=== PATIENT | female | born 1945 | race Caucasian/White ===

== ENCOUNTER 2022-07-29 00:21 | Day surgery (SDC) | payer MEDICARE, SELFPAY ==
[2022-07-23 11:38] VITALS: BMI 25.4
--- NOTE | 2022-07-28 14:56 | WPDANESEPPF ---
Anes - Initial Pre Proc Eval Procedure: Operation Date: 07/29/22 10:00 Proposed Procedures p Bronchoscopy with Fluoroscopy - Bonifacio Delatorre MD Date/Time: 07/28/22 14:56 Surgeon: Bonifacio Delatorre MD Pre Op Diagnosis: right lung mass Patient Data Age: 77 Gender: F Height: 1.6 m Weight: 65 kg Allergies Allergy/AdvReac Type Severity Reaction Status Date / Time hydroxychloroquine Allergy Severe Rash Verified 07/23/22 11:41 sulfamethoxazole Allergy Severe Rash Verified 07/23/22 11:42 [From Bactrim] trimethoprim [From Bactrim] Allergy Severe Rash Verified 07/23/22 11:42 Home Medications Medication Instructions Recorded Confirmed Type diclofenac sodium 75 mg 75 mg PO BID 05/04/21 07/23/22 History tablet,delayed release multivit with 1 tablet PO DAILY 05/04/21 07/23/22 History hutzwxbw-rvbq-WW-lutein 8 mg iron-400 mcg-300 mcg tablet (Centrum Silver Women) amlodipine 5 mg tablet 5 mg PO QPM 07/21/22 07/23/22 History aspirin 81 mg tablet,delayed 81 mg PO DAILY 07/21/22 07/23/22 History release atorvastatin 40 mg tablet 40 mg PO DAILY 07/21/22 07/23/22 History losartan 100 mg tablet 100 mg PO DAILY 07/21/22 07/23/22 History albuterol sulfate 90 mcg/actuation 2 inh inhalation Q4-6H PRN 07/23/22 07/23/22 History aerosol inhaler Shortness Of Breath Or Wheezing cholecalciferol (vitamin D3) 25 25 mcg PO DAILY 07/23/22 07/23/22 History mcg (1,000 unit) tablet (Vitamin D3) clobetasol 0.05 % topical ointment 1 applic topical BID PRN LICHENS 07/23/22 07/23/22 History mucus clearing device 07/23/22 07/23/22 History umeclidinium 62.5 mcg/actuation 1 inh inhalation DAILY #30 ea 07/27/22 Rx blister powder for inhalation (Incruse Ellipta) Patient hx anesthesia problems: none Family hx anesthesia problems: none Results Review: All pre-operative results and documents have been reviewed as part of the pre-operative evaluation. [facility] Past Medical History Medical History (Updated 07/28/22 @ 14:57 by Carlitos Richardson MD) Arthritis COPD (chronic obstructive pulmonary disease) Hypertension Lichen sclerosus 2016 Lung mass Surgical History Surgical History History of appendectomy 1951 History of breast biopsy 1991 History of dilation and curettage 1976 History of left salpingo-oophorectomy History of right oophorectomy only part of ovary was removed Family History Family History Father Alcoholism Hypertension Heart problem Mother Hypertension Depression Anxiety Heart problem Sibling Alcoholism Diabetes mellitus Hypertension Grandparent Alcoholism Diabetes mellitus Social History Social History (Updated 07/21/22 @ 13:15 by Char Jackson [facility]) Smoking packs per day: 1 Smoking cigarettes per day: 20.0 Years smoked: 60 Smoking pack-years: 60.00 Smoking status: Former smoker Tobacco type: cigarettes Smoking end date: 06/12/22 Alcohol intake: former Substance use: never Substance use type: does not use Living arrangements: with roommate(s) Spiritual care concerns: No Anes - Eval Final PreProcedure Day of Procedure 07/28/22 14:56 Patient weight: normal Heart: regular rate and rhythm Lungs: clear to auscultation and normal air movement Airway: Mallampati scale class II Neurological: alert and oriented Last oral intake: >/= 8 hours ASA classification: III Emergent: no Anesthetic plan: proceed Anesthesia type and monitoring: general LMA and ETT Results Review: All pre-operative results and documents have been reviewed as part of the pre-operative evaluation. Informed Consent: The patient's anesthetic plan and its attendant risks and benefits were discussed with the patient/family/POA. Questions were solicited and answers provided to the satisfaction of the patient/family/POA.
[2022-07-29] VITALS (12 sets, daily range): BP systolic 110–168; BP diastolic 53–97; PULSE 67–94; RESP 14–24; TEMP 36.2; O2SAT 96–100; BMI 25.2
--- NOTE | ~2022-07-29 | XR_ITS ---
EXAMINATION: XR fl bronchoscopy w imaging DATE: 07/29/2022 10:55 INDICATION: Right hilar and mediastinal lymphadenopathy. TECHNIQUE: A single fluoroscopic view of the chest was obtained. I was not present. Fluoroscopy expos ure time was 69 seconds. COMPARISON: Chest single view 07/29/2022 FINDINGS: The bronchoscope overlies the right hilum. IMPRESSION: 1. Right-sided bronchoscopy. Reviewed, dictated and finalized at location A. ER [employer]
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
[2022-07-29] MEDS: LACTATED RINGERS 1,000 ML 150 ML IV CONT (08:52)
--- NOTE | 2022-07-29 08:53 | PM.IMHP ---
H&P: HPI History of Present Illness Date/Time: 07/29/22 08:53 Chief Complaint: Patient presents for outpatient bronchoscopy Narrative: patient presents for outpatient bronchoscopy. Patient was found to have a PET positive subcarinal and right hilar lesion with a right middle lobe collapse. I saw the patient in the clinic on 07/21/2022 and we discussed outpatient bronchoscopy scheduled for today. See below. Today the patient tells me she has no change in her symptoms. She denies fever, chills, rigors, phlegm production or hemoptysis. Risks and benefits of procedure explained and patient agrees to proceed Pulmonary clinic visit 07/21/2022:? This is a new pulmonary clinic encounter for mediastinal lymphadenopathy. 77-year-old with a history of tobacco use, mild COPD arthritis, hypertension, hyponatremia, rhinitis with postnasal drip, hyperlipidemia, who was referred by Dr. Montes for PET positive right hilar and subcarinal mass. Patient was seen by Dr. Montes on 07/05/2022. ?States she was seen by Dr. Pimentel (pulmonary), did PFTs last week.? Cough when laying on right side.? Complains of sinus infection and was given amoxicillin last week.? Is almost finished with antibiotics.? Taking [id number]-[id number] Zyrtec.? Room air saturations 97%.? Respiratory medicines include albuterol sulfate inhaler PRN. ?The assessment and plan states that the patient has a lung mass and is scheduled to get a PET scan this week.? 07/08/2022 patient had a PET CT scan with hypermetabolic lymphadenopathy in the right hilum and subcarinal location.? Right middle lobe collapse, no hyper metabolic pulmonary nodules or masses. ?I have no images to review. ? Today she tells me that She has been told she has COPD few months ago.? The patient states that over the last years she has had worsening dyspnea on exertion.? If she walks slowly she has no limitations otherwise she said she can walk 1-2 blocks.? Her M MRC grade is 1.? She denies wheezing, cough, phlegm production and has never had any hemoptysis.? Patient was in the emergency room in June of 2022 for shortness of breath and given bronchodilators and discharged on albuterol p.r.n..? She has not been admitted to the hospital for COPD exacerbation in the last year.? Patient smoked tobacco from age 17-5 weeks ago at 1 pack per day for total of 60 pack years.? Patient was exposed to secondhand smoke through her father and through her roommate up until 2006.? 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 Patient denies any prior cancer, chemotherapy or radiation therapy. Patient has lost 7 lb in last 2 and half months. ? Patient's CAT score today is 15. DATA: 07/08/2022 PET/CT: I have a report from a PET CT from [facility]. Comparison to chest CT 06/11/2022. Chest:? Hypermetabolic lymphadenopathy is present in the right hilum and subcarinal station, and the right hilum this is 3.7 x 2.1 cm maximal SUV 14.7.? In the subcarinal station this is 3.0 x 1.6 cm, maximal SUV 13.7.? There are few smaller right paratracheal and posterior paratracheal lymph nodes which measure up to 1.2 cm with a maximal SUV of 3.6.? There is peripheral minimally FDG avid wedge-shaped opacity in the right middle lobe which likely post obstructive atelectasis, the right middle lobe appears collapse.? No hypermetabolic pulmonary nodules or masses.? The heart size is mildly enlarged.? There is no pleural or pericardial effusion.? No hypermetabolic supraclavicular, axillary or hilar lymphadenopathy. Impression: 1. Hypermetabolic right hilar and mediastinal lymphadenopathy most pronounced in the subcarinal station most characteristic of neoplasm, the etiology is nonspecific.? Correlation with bronchoscopy and tissue sampling is recommended. 2. Peripheral wedge-shaped opacity in the right middle lobe with minimal activity characteristic of right middle
[2022-07-29 08:59] LABS: INR 1.1; Prothrombin Time 13.3 Seconds (11.1-14.7)
[2022-07-29 08:59] LABS: Hematocrit 38.8 % (37.0-47.0); Hemoglobin 12.5 g/dL (12.0-15.0); Mean Corpuscular HGB Conc 32.2 g/dl (32-36); Mean Corpuscular Hemoglobin 29.4 pg (26-34); Mean Corpuscular Volume 91.3 fl (80-100); Mean Platelet Volume 9.7 fl (7.4-10.4); Platelet Count Result 254 k/mm3 (150-375); Red Blood Count 4.25 M/mm3 (4.2-5.4); Red Cell Distribution Width 13.2 % (11.5-14.5)
[2022-07-29 09:00] LABS: Partial Thromboplastin Time 30.8 SECONDS (22.3-36.8)
[2022-07-29 09:02] LABS: Anion Gap 11 mmol/L (8-16); Blood Urea Nitrogen 21 mg/dL (7-17); Calcium 8.9 mg/dL (8.4-10.2); Carbon Dioxide 24 mmol/L (22-30); Chloride 106 mmol/L (98-107); Estimated CRCL calculation 29 ml/min; Estimated Glomerular Filt Rate 44; Glucose 102 mg/dL (65-110); Potassium 4.2 mmol/L (3.4-5.0); Sodium 141 mmol/L (137-145)
[2022-07-29] MEDS: LIDOCAINE HCL 2% LOCAL INJ 20 ML VIAL 4 ML INFILTRATE (11:05)
[2022-07-29] MEDS: SODIUM CHLORIDE 0.9% IV 500 ML BAG IRRIGATION (11:06)
--- NOTE | 2022-07-29 11:53 | SUR.PHASEII ---
Post op chest X ray results called to Dr. Delatorre. Dr. Delatorre has reviewed and states ok to discharge patient.
--- NOTE | 2022-07-29 11:59 | SUR.PHASEII ---
Pt complains of right upper lobe pain on inspiration. Dr. Delatorre notified and at bedside to assess patient.
--- NOTE | 2022-07-29 12:44 | SUR.PHASEII ---
Radiology here for chest x-ray.
--- NOTE | 2022-07-29 12:53 | SUR.PHASEII ---
Pt. states that all her previous pain on inspiration has gone away. Vitals stable. Very pleasant and cooperative. No questions at this time.
--- NOTE | 2022-07-29 13:02 | SUR.PHASEII ---
Dr. Delatorre at bedside talking with pt. at present time.
--- NOTE | 2022-07-29 13:35 | SUR.PHASEII ---
Recent chest x ray results called to Dr Delatorre states ok to discharge pt.
== END 2022-07-29 13:49 | disposition home or self-care (01) ==
PROVIDERS: PCP Internal Medicine; Visit Provider Internal Medicine Pulmonary Disease
PROC: BB1DZZZ Fluoroscopy of Upper Airways (ICD-10-PCS; CPT 31624; principal; 2022-07-29 10:00)
DX: R91.8 Other nonspecific abnormal finding of lung field (principal); R07.89 Other chest pain; G89.18 Other acute postprocedural pain; J44.9 Chronic obstructive pulmonary disease, unspecified; I10 Essential (primary) hypertension; E78.5 Hyperlipidemia, unspecified; Z87.891 Personal history of nicotine dependence; Z79.51 Long term (current) use of inhaled steroids; Z79.82 Long term (current) use of aspirin
CPT/HCPCS: 31629; 31624; 36415; 71045; 80048; 85027; 85610; 85730; 87015; 87070; 87102; 87116; 87205; 87206; 88108; 88160; 88305; 88312; 99199; J0330; J2405; J2704; J7040; J7120

== ENCOUNTER 2022-08-31 09:46 | Outpatient (CLI) | payer MEDICARE, SELFPAY ==
--- NOTE | ~2022-08-31 | CT_ITS ---
CT Scan of the Chest without Contrast: Clinical Indication: Lung mass Technique: Contiguous sections were acquired throughout the chest without intravenous contrast. Dose reduction technique was used on this scan by utilizing automated exposure control and iterative recon struction technique. The dose-length product (DLP) was 157.35 mGy-cm. COMPARISON: 06/11/2022 Findings: There is a probable small right hilar mass, which is probably significantly decreased in size from pr ior exam, though somewhat poorly delineated without contrast. There is partial atelectatic change of the right middle lobe. Lungs are otherwise clear. Previously noted enlarged subcarinal lymph node is markedly decreased in size, now measuring 1.4 x 0. 6 cm. No other mediastinal lymphadenopathy evident. No pericardial effusion. No pleural effusions. Images through the upper abdomen reveal no abnormalities. Impression: Significant interval decrease in size of right hilar mass and subcarinal lymphadenopathy as compared to prior exam. This presumably represents interval response to therapy. Partial right middle lobe atelectatic change. Reviewed, dictated and finalized at [facility]. P SORTER Impression: Significant interval decrease in size of right hilar mass and subcarinal lympha denopathy as compared to prior exam. This presumably represents interval respon se to therapy. Partial right middle lobe atelectatic change.
== END 2022-08-31 09:47 | disposition home or self-care (01) ==
PROVIDERS: PCP Internal Medicine; Visit Provider Internal Medicine Pulmonary Disease
DX: R91.8 Other nonspecific abnormal finding of lung field (principal); R59.0 Localized enlarged lymph nodes; J98.11 Atelectasis
CPT/HCPCS: 71250

== ENCOUNTER 2022-11-29 09:46 | Outpatient (CLI) | payer MEDICARE, SELFPAY ==
--- NOTE | ~2022-11-29 | CT_ITS ---
Clinical Indication: Lung mass, lymphadenopathy CT Scan of the Chest with Contrast: Technique: Contiguous sections were acquired throughout the chest after intravenous administration of 75 cc of Omnipaque 350. Dose reduction technique was used on this scan by utilizing automated exposu re control and iterative reconstruction technique. The dose-length product (DLP) was 209.30 mGy-cm. COMPARISON: 08/31/2022 Findings: There is no evidence of any significant mediastinal, hilar or axillary lymphadenopathy. There is no f illing defect in the pulmonary arterial tree to suggest pulmonary embolus. There is no evidence of ao rtic dissection or aneurysm. There are atherosclerotic calcifications of the aorta. There is no evidence of pleural or pericardial effusion. There is right middle lobe and lingular scarring. No suspicious pulmonary nodule identified. Images through the upper abdomen reveal no abnormalities. Impression: Right middle lobe and lingular scarring, otherwise clear lungs. Small mediastinal lymph nodes are not enlarged by size criteria. Reviewed, dictated and finalized at [facility]. Impression: Right middle lobe and lingular scarring, otherwise clear lungs. Small mediastinal lymph nodes are not enlarged by size criteria.
[2022-11-29 10:22] LABS: Estimated Glomerular Filt Rate 37
== END 2022-11-29 09:47 | disposition home or self-care (01) ==
PROVIDERS: PCP Internal Medicine; Visit Provider Internal Medicine Pulmonary Disease
DX: R91.8 Other nonspecific abnormal finding of lung field (principal)
CPT/HCPCS: 71260; Q9967

== ENCOUNTER 2023-11-30 13:57 | Outpatient (CLI) | payer MEDICARE, SELFPAY ==
--- NOTE | ~2023-11-30 | CT_ITS ---
CT Scan of the Chest without Contrast: Clinical Indication: Nonspecific abnormal finding of lung field Technique: Contiguous sections were acquired throughout the chest without intravenous contrast. Dose reduction technique was used on this scan by utilizing automated exposure control and iterative recon struction technique. The dose-length product (DLP) was 156.48 mGy-cm. COMPARISON: 11/29/2022 Findings: There is no evidence of any significant mediastinal, hilar or axillary lymphadenopathy. There are ath erosclerotic calcifications of the aorta and coronary arteries. There is no evidence of pleural or pericardial effusion. 4 mm subpleural right middle lobe pulmonary nodule present, not clearly seen on prior exam (axial lauren ge 69). Images through the upper abdomen reveal no abnormalities. Impression: 4 mm right middle lobe pulmonary nodule. According to Fleischner Society criteria, for a low-risk pat ient, no further follow-up required. For a high-risk patient, consider 12 follow-up CT. Reviewed, dictated and finalized at [facility]. Impression: 4 mm right middle lobe pulmonary nodule. According to Fleischner Society criter ia, for a low-risk patient, no further follow-up required. For a high-risk yosi ent, consider 12 follow-up CT.
== END 2023-11-30 13:58 | disposition home or self-care (01) ==
LOC: ANHIMG 13:57
PROVIDERS: PCP Internal Medicine; Visit Provider Internal Medicine Pulmonary Disease
DX: R91.1 Solitary pulmonary nodule (principal); R91.8 Other nonspecific abnormal finding of lung field
CPT/HCPCS: 71250

== ENCOUNTER 2024-11-29 09:28 | Outpatient (CLI) | payer MEDICARE, SELFPAY ==
--- NOTE | ~2024-11-29 | CT_ITS ---
CT Scan of the Chest without Contrast: Clinical Indication: Lung cancer screening, nicotine dependence Technique: Contiguous sections were acquired throughout the chest without intravenous contrast. Dose reduction technique was used on this scan by utilizing automated exposure control and iterative recon struction technique. The dose-length product (DLP) was 95.98 mGy-cm. COMPARISON: 11/30/2023 Findings: There is no evidence of any significant mediastinal, hilar or axillary lymphadenopathy. The mediastin al soft tissues appear normal. There is no evidence of pleural or pericardial effusion. Right middle lobe pulmonary nodule is mildly decreased. A few additional tiny scattered pulmonary nod ules are unchanged. Images through the upper abdomen reveal no abnormalities. Stable mild compression deformities of T8 a nd T9. Impression: Lung RADS 2: Benign appearance. 12 month follow-up screening CT advised. Reviewed, dictated and finalized at location . Impression: Lung RADS 2: Benign appearance. 12 month follow-up screening CT advised.
--- OUTSIDE RECORDS SUMMARY | 2024-11-29 09:54 | XMS_ITS | Data Portability ---
Author Organization [facility] Address [address] [place] [address] Care Team Providers Care Fisher Clam Name Role Phone PIERRE HERNANDEZ Propeller Mechanic CHELE MURCIA Primary Care Provider Assessment No assessment recorded. Plan of Treatment Reminders Order Date Submit Date Provider Last Modified By Organization Details Last Modified Time Details Appointments None recorded . Lab patholog y study 2015 016 DBA_[email or web address] [id number] [facility], [address], [place], [address], 6 04:33:04 urinalys is, dipstick 2015 016 DBA_PATCH_20 [id number] In-Office Order, Internal Use Only DO Not Attach Compendium DO Not Attach Compendium, Do Not Delete/merge, [id number] 6 04:32:05 bacteria l vaginosi s + vaginiti s panel, vaginal 2015 016 DBA_PATCH_20 [id number] [facility], [address], [place], [address], 6 04:32:08 herpes simplex, culture, unspecif ied specimen 2015 016 DBA_PATCH_20 [id number] [facility], [address], [place], [address], 6 04:32:08 pap, IG + HPV, cervical - did above PAP from vulva for diagnosi s of vulvar pruritis at age 71 2015 016 DBA_PATCH_20 [id number] [facility], [address] [address], [place], [address], 6 04:31:45 Referral None recorded . Procedures None recorded . Surgeries None recorded . Imaging None recorded . Medication Orders Calcium with Vitamin D 600 mg-10 mcg (400 unit) tablet 2020 021 INTERFACE Not available 07:17:57 multivit sharma tablet 2020 INTERFACE Not available 07:17:57 clobetas ol 0.05 % topical ointment 2020 INTERFACE Not available 23:44:15 Percocet 5 mg-325 mg tablet 2015 016 DBA_PATCH_20 [id number] Not available 6 04:33:07 fluconaz ole 150 mg tablet 2015 016 [email or web address] Not available 16:04:59 Patient TargetsNo targets recorded. Patient Instructions Encounter Date Encounter Id Patient Instructions Last Modified By Organization Details Last Modified Time 07/30/2016 [id number] candidiasis: car e instructions [email or web address] Not available 07/30/2016 16:16:44 08/19/2016 [id number] vulvar biopsy education [email or web address] [id number] Not available 08/28/2016 04:33:12 09/02/2016 [id number] lichen sclerosus : care instructions svuyyuru Not available 09/02/2016 11:47:35 lichen sclerosis education svuyyuru Not available 09/02/2016 11:47:35 Reason for Referral None Reported. Results Created Date Observation Date Name Description Value Unit Range Abnormal Flag Note LastModifiedBy Organization Detail LastModifiedTime 07/30/20 16 07/30/2016 urina lysis , dipst ick Leukocytes Negati ve Not Available In-Office Order Internal Use Only DO Not Attach Compendium DO Not Attach Compendium, Do Not Delete/merge, [id number] 07/30/2016 15:11:15 07/30/20 16 07/30/2016 urina lysis , dipst ick Nitrite negati ve Not Available In-Office Order Internal Use Only DO Not Attach Compendium DO Not Attach Compendium, Do Not Delete/merge, [id number] 07/30/2016 15:11:15 07/30/20 16 07/30/2016 urina lysis , dipst ick Urobilinogen .2 Not Available In-Of fice Order Internal Use Only DO Not Attach Compendium DO Not Attach Compendium, Do Not Delete/merge, [id number] 07/30/2016 15:11:15 07/30/20 16 07/30/2016 urina lysis , dipst ick Protein Negati ve Not Available In-Office Order Internal Use Only DO Not Attach Compendium DO Not Attach Compendium, Do Not Delete/merge, [id number] 07/30/2016 15:11:15 07/30/20 16 07/30/2016 urina lysis , dipst ick pH 7.0 Not Available In-Office Order Internal Use Only DO Not Attach Compendium DO Not Attach Compendium, Do Not Delete/merge, [id number] 07/30/2016 15:11:15 07/30/20 16 07/30/2016 urina lysis , dipst ick Blood Negati ve Not Available In-Office Order Internal Use Only DO Not Attach Compendium DO Not Attach Compendium, Do Not Delete/merge, [id number] 07/30/2016 15:11:15 07/30/20 16 07/30/2016 urina lysis , dipst ick Specific [place] 1.015 Not Available In-Off ice Order Internal Use Only DO Not Attach Compendium DO Not Attach Compendium, Do Not Delete/merge, [id number] 07/30/2016 15:11:15 07/30/20 16 07/30/2016 urina lysis , dipst ick Ketone Negati ve Not Available In-Office Order Internal Use Only DO Not Attach Compendium DO Not Attach Compendium, Do Not Delete/merge, [id number] 07/30/2016 15:11:15 07/30/20 16 07/30/2016 urina lysis , dipst ick Bilirubin Negati ve Not Available In-Office Order Internal Use Only DO Not Attach Compendium DO Not Attach Compendium, Do Not Delete/merge, [id number] 07/30/2016 15:11:15 07/30/20 16 07/30/2016 urina lysis , dipst ick Glucose Negati ve Not Available In-Office Order Internal Use Only DO Not Attach Compendium DO Not Attach Compendium, Do Not Delete/merge, [id number] 07/30/2016 15:11:15 07/30/20 16 08/01/2016 bacte rial vagin osis + vagin itis panel , vagin al trich vag by SHIREEN NEGATI VE negati ve Not Available [facility] ([facility]) [address] [place], [address], 08/03/2016 14:11:35 07/30/20 16 08/01/2016 bacte rial vagin osis + vagin itis panel , vagin al chlamydia trachomatis, SHIREEN NEGATI VE negati ve Not Available [facility] ([facility]) [address] [place], [address], 08/03/2016 14:11:35 07/30/20 16 08/01/2016 bacte rial vagin osis + vagin itis panel , vagin al neisseria gonorrhoeae, SHIREEN NEGATI VE negati ve Not Available [facility] ([facility]) [address] [place], [address], 08/03/2016 14:11:35 07/30/20 16 08/03/2016 bacte rial vagin osis + vagin itis panel , vagin al atopobium vaginae LOW - 0 score Not Available [facility] ([facility]) [address] [place], [address], 08/03/2016 14:11:35 07/30/20 16 08/03/2016 bacte rial vagin osis + vagin itis panel , vagin al bvab 2 LOW - 0 score Not Available [facility] ([facility]) [address] [place], [address], 08/03/2016 14:11:35 07/30/20 16 08/03/2016 bacte rial vagin osis + vagin itis panel , vagin al megasphaera 1 LOW - 0 score CALCU LATE TOTAL SCORE BY SANDY Murphy THE 3 INDIV IDUAL BACTE RIAL VAGIN OSIS (BV) MARKE R SCORE S TOGET HER. TOTAL SCORE IS INTER PRETE D FOLLO WS: TOTAL SCORE 0-1: INDIC ATES THE ABSEN CE OF BV. TOTAL SCORE 2: INDET ERMIN ATE FOR BV. ADDIT IONAL CLINI MERRY DATA SHOUL D BE EVALU ATED TO ESTAB VALENTE A DIAGN OSIS. TOTAL SCORE 3-6: INDIC ATES THE PRESE NCE OF BV. THIS TEST WAS DEVEL OPED AND ITS PERFO RMANC E RUSSELL CTERI STICS DETER MINED BY [employer]. IT HAS NOT BEEN CLEAR ED OR APPRO DEVANG BY THE FOOD AND DRUG ADMIN ISTRA TION. THE FDA HAS DETER MINED THAT SUCH CLEAR ANCE OR APPRO TODD IS NOT NECES JORGE. Not Available [facility] ([facility]) [address] [place], [address], 08/03/2016 14:11:35 07/30/20 16 08/03/2016 bacte rial vagin osis + vagin itis panel , vagin al alex albicans, SHIREEN NEGATI VE negati ve Not Available [facility] ([facility]) [address] [place], [address], 08/03/2016 14:11:35 07/30/20 16 08/03/2016 bacte rial vagin osis + vagin itis panel , vagin al alex glabrata, SHIREEN NEGATI VE negati ve THIS TEST WAS DEVEL OPED AND ITS PERFO RMANC E RUSSELL CTERI STICS DETER MINED BY [employer]. IT HAS NOT BEEN CLEAR ED OR APPRO DEVANG BY THE FOOD AND DRUG ADMIN ISTRA TION. THE FDA HAS DETER MINED THAT SUCH CLEAR ANCE OR APPRO TODD IS NOT NECES JORGE. Not Available [facility] ([facility]) [address] [place], [address], 08/03/2016 14:11:35 07/30/20 16 08/01/2016 herpe s simpl ex, cultu re, unspe cifie d speci men hsv culture/type COMMEN T NEGAT CEDRICK NO HERPE S SIMPL EX VIRUS ISOLA BALA. Not Available [facility] ([facility]) [address] [facility], [place], [address], 08/03/2016 14:11:36 07/30/20 16 08/03/2016 pap, IG + HPV, cervi merry HPV aptima NEGATI VE negati ve THIS TEST DETEC TS FOURT EEN HIGH- RISK HPV TYPES (16/1 8/31/ 33/35 /39/4 5/ 51/52 /56/5 8/59/ 66/68 ) WITHO UT DIFFE RENTI ATION . Not Available [facility] ([facility]) [address] [facility], [place], [address], 08/04/2016 14:12:36 07/30/20 16 08/04/2016 pap, IG + HPV, cervi merry diagnosis: COMMEN T UNSAT ISFAC TORY FOR EVALU ATION . Not Available [facility] ([facility]) [address] [facility], [place], [address], 08/04/2016 14:12:36 07/30/20 16 08/04/2016 pap, IG + HPV, cervi merry recommendati on: COMMEN T SUGGE ST FOLLO W UP CLINI KARLA APPRO PRIAT E. Not Available [facility] ([facility]) [address] [facility], [place], [address], 08/04/2016 14:12:36 07/30/20 16 08/04/2016 pap, IG + HPV, cervi merry specimen adequacy: COMMEN T SPECI MEN PROCE SSED AND EXAMI KELLI BUT UNSAT ISFAC TORY FOR EVALU ATION OF EPITH ELIAL ABNOR MALIT Y BECAU SE OF INSUF FICIE NT CELLU LARIT Y. Not Available [facility] ([facility]) [address] [place], [address], 08/04/2016 14:12:36 07/30/20 16 08/04/2016 pap, IG + HPV, cervi merry clinician provided ICD10: MARCIE Vital L29.2 Not Available [facility] ([facility]) [address] [place], [address], 08/04/2016 14:12:36 07/30/20 16 08/04/2016 pap, IG + HPV, cervi merry performed by: MARCIE Fink, CYTOT ECHNO LOGIS T (ASCP ) Not Available [facility] ([facility]) [address] [place], [address], 08/04/2016 14:12:36 07/30/20 16 08/04/2016 pap, IG + HPV, cervi merry QC reviewed by: MARCIE Fink, GENO VISOR Y CYTOT ECHNO LOGIS T (ASCP ) Not Available [facility] ([facility]) [address] [place], [address], 08/04/2016 14:12:36 07/30/20 16 08/04/2016 pap, IG + HPV, cervi merry . . Not Available [facility] ([facility]) [address] [place], [address], 08/04/2016 14:12:36 07/30/20 16 08/04/2016 pap, IG + HPV, cervi merry note: MARCIE Vital THE PAP SMEAR IS A SCREE KRISTIN TEST DESIG KELLI TO AID IN THE DETEC TION OF CONOR LIGNA NT AND MALIG NANT CONDI TIONS OF THE UTERI NE CERVI X. IT IS NOT A DIAGN OSTIC PROCE DURE AND SHOUL D NOT BE USED THE SOLE MEANS OF DETEC TING CERVI MERRY CANCE R. BOTH FALSE -POSI TIVE AND FALSE -NEGA TIVE REPOR TS DO OCCUR . Not Available [facility] ([facility]) [address] [place], [address], 08/04/2016 14:12:36 07/30/20 16 08/04/2016 pap, IG + HPV, cervi merry test methodology: TNP THE THIN PREP( R) IMAGE R WAS UNABL E TO READ THIS SPECI MEN. THERE FORE A RAFIA GOINSIE W WAS PERFO RMED. Not Available [facility] ([facility]) [address] [facility], [place], [address], 08/04/2016 14:12:36 08/19/20 16 08/24/2016 patho logy study . COMMEN T MATER IAL SUBMI TTED: . PART A: PUNCH BIOPS Y INNER SIDE RIGHT LABIA MAJOR A PART B: PUNCH BIOPS Y INNER SIDE LEFT LABIA MAJOR A Not Available [facility] ([facility]) [address] [facility], [place], [address], 08/24/2016 10:36:24 08/19/20 16 08/24/2016 patho logy study . COMMEN T CLINI LOY PROVI DED ICD-1 0: L29.2 Not Available [facility] ([facility]) [address] [facility], [place], [address], 08/24/2016 10:36:24 08/19/20 16 08/24/2016 patho logy study . COMMEN T DIAGN OSIS: PART A: PUNCH BIOPS Y INNER SIDE RIGHT LABIA MAJOR A: LICHE N SCLER OSUS ET ATROP HICUS . NEGAT CEDRICK FOR DYSPL SOULEYMANE, VIRAL EFFEC T, AND MALIG DAI . PART B: PUNCH BIOPS Y INNER SIDE LEFT LABIA MAJOR A: BENIG N VULVA R TISSU E WITH HYPER KERAT OSIS AND CHRON IC INFLA MMATI ON. QUERY EARLY /EVOL VING LICHE N SCLER OSUS ET ATROP HICUS . NEGAT CEDRICK FOR DYSPL SOULEYMANE, VIRAL EFFEC T, AND MALIG DAI . 2015 Not Available [facility] ([facility]) [address] [place], [address], 08/24/2016 10:36:24 08/19/20 16 08/24/2016 patho logy study . COMMLAMAR T AMELIA AGUILA D: . BELLO ADAM MD, PATHO LOGIS T Not Available [facility] ([facility]) [address] [place], [address], 08/24/2016 10:36:24 08/19/20 16 08/24/2016 patho logy study . COMMLAMAR HARPER DESCR IPTIO N: . 2 CONTA INERS , FORMA JUDITH-F ILLED , LABEL ED WITH PATIE NT IDENT IFICA TION. PART A: PUNCH BIOPS Y INNER SIDE RIGHT LABIA MAJOR A: 1 PUNCH BIOPS Y OF GUTIÉRREZ-Y ELLOW SKIN MEASU RING 0.3 X 0.3 X 0.2 CM. THE SURGI MERRY RODRIGUE N IS INKED BLUE AND THE SPECI MEN IS BISEC BALA. THE SPECI MEN IS SUBMI TTED IN CASSE TTE(S ) A. PART B: PUNCH BIOPS Y INNER SIDE LEFT LABIA MAJOR A: RECEI DEVANG IN FORMA JUDITH ARE MULTI PLE FRAGM ENTS OF GUTIÉRREZ, TISSU E MEASU RING 0.1 X 0.1 X 0.1 CM TO 0.4 X 0.4 X 0.1 CM. THE ENTIR E SPECI MEN IS PLACE D INTO A FILTE R BAG. THE LARGE R ARE BISEC BALA. IT IS SUBMI TTED IN TOTO IN CASSE TTE B. /LMS LMS/L MS Not Available [facility] ([facility]) [address] [place], [address], 08/24/2016 10:36:24 08/19/20 16 08/24/2016 patho logy study . COMMEN T PATHO LOGIS T PROVI DED ICD-1 0: L90.0 , N90.4 , L90.0 Not Available [facility] ([facility]) [address] [place], [address], 08/24/2016 10:36:24 08/19/20 16 08/24/2016 patho logy study . COMMEN T CPT . 97234 1, 44966 2 Not Available [facility] ([facility]) [address] [place], [address], 08/24/2016 10:36:24 Result Notes None recorded. Problems Name Problem SNOMED Code Status Onset Date Resolution Date Notes Provider Name and Address Organization Details Recorded Time Genital lichen sclerosus 222275218 Active 021 Gadiel Oshea alex, [facility] 1 16:56:55 Problem Notes None recorded. Procedures Surgical History Date Name Laterality Status Provider Name and Address Organization Details Recorded Time 08/19/20 16 Vulvar Biopsy completed Pierre Hernandez MD Attn: Accounting[address] [place], [address], [facility] 08/19/2016 12:55:58 09/12/19 14 Most Recent Mammogram completed Jennifer Ann MA [facility] 07/30/2016 15:10:33 09/12/19 06 Date of Last Pap Smear completed Jennifer Ann MA [facility] 07/30/2016 15:08:35 09/12/18 76 Dilation and Curettage completed Vale Abraham MA [facility] 08/19/2016 12:01:14 Appendectomy completed Jennifer Ann MA [facility] 07/30/2016 14:41:11 Laparoscopy completed Jennifer Ann MA [facility] 07/30/2016 14:41:33 Imaging Results None recorded. Procedure Notes None recorded. Medical Equipment None Reported. Allergies Allergen ID Allergen Name Allergen Category Reaction Reaction Severity Criticality Documentation Date Start Date Code Code System Note Provider Name and Address Organization Details Recorded Time 637928 hydroxych loroquine medicatio n hives severe Not available 11/12/2020 5521 RxNorm Not Available Not Available Not Available 59764 Bactrim medicatio n respirato ry distress Not available Not available 07/30/2016 57231 9 RxNorm Not Available Not Available Not Available Medications Name Sig Start Date Stop Date Status Note LastModified by Organization Details LastModified Time multivitami n tablet Take 1 tablet every day by oral route. 2020 active Not Available Not Available Not Avai lable amoxicillin 500 mg capsule 11/12 completed Not Available Not Available Not Available prednisone 10 mg tablet 11/12 completed Not Available Not Available Not Available doxycycline hyclate 100 mg capsule active Not Available Not Available N ot Available azithromyci n 250 mg tablet 11/12 completed Not Available Not Available Not Available ibuprofen 800 mg tablet 11/12 completed Not Available Not Available Not Available fluconazole 150 mg tablet Take 1 tablet by oral route for 1 day. 11/12 completed Not Available Not Available Not Available prednisone 5 mg tablet 11/12 completed Not Available Not Available Not Available losartan 100 mg-hydrochl orothiazide 25 mg tablet active Not Available Not Available Not Available oxycodone-a cetaminophe n 5 mg-325 mg tablet Take 1 tablet every 6 hours by oral route as needed. active Not Available Not Available No t Available betamethaso ne dipropionat e 0.05 % topical cream as directed active Not Available Not Available No t Available diclofenac sodium 75 mg tablet,kp yed release active Not Available Not Available Not Available clobetasol 0.05 % topical ointment APPLY A THIN LAYER TO THE AFFECTED AREA(S) BY TOPICAL ROUTE 2 TIMES PER DAY 2020 active Not Available Not Available Not Avai lable levofloxaci n 750 mg tablet active Not Available Not Available Not Available methylpredn isolone 4 mg tablets in a dose pack 11/12 completed Not Available Not Available Not Available amoxicillin 875 mg-potassiu m clavulanate 125 mg tablet 11/12 completed Not Available Not Available Not Available Ventolin HFA 90 mcg/actuati on aerosol inhaler active Not Available Not Available Not Available olmesartan 20 mg tablet active Not Available Not Available Not Available ezetimibe 10 mg tablet active Not Available Not Available Not Available cyclobenzap rine 5 mg tablet 11/12 completed Not Available Not Available Not Available rosuvastati n 20 mg tablet active Not Available Not Available Not Available Calcium with Vitamin D 600 mg-10 mcg (400 unit) tablet Take 1 tablet twice a day by oral route. 2020 active Not Available Not Available Not Avai lable Vitals Date Recorded Body height Body mass index (BMI) Body weight Provider Name and Address Organization Details Last Updated DateTime 11/12/2020 158.75 cm 27 kg/m2 90582.86 g Vale Abraham MA [facility] 11/12/2020 16:02:04 Date Recorded Body weight Body height Body mass index (BMI) Systolic blood pressure Diastolic blood pressure Provider Name and Address Organization Details Last Updated DateTime 07/30/2016 79412.19 g 160.02 cm 23.4 kg/m2 122 mm[Hg] 72 mm[Hg] Jennifer Ann MA [facility] 6 15:17:26 Date Recorded Body height Body weight Body mass index (BMI) Systolic blood pressure Diastolic blood pressure Provider Name and Address Organization Details Last Updated DateTime 08/19/2016 160.02 cm 82986.75 g 24.4 kg/m2 132 mm[Hg] 74 mm[Hg] Vale Abraham MA [facility] 6 12:03:35 Date Recorded Body height Body weight Body mass index (BMI) Systolic blood pressure Diastolic blood pressure Provider Name and Address Organization Details Last Updated DateTime 09/02/2016 160.02 cm 46235.97 g 23.9 kg/m2 132 mm[Hg] 70 mm[Hg] Nicole Gunn MA [facility] 6 11:03:44 Social History Question Answer Notes LastModified by Organizat ion Details LastModified Time Tobacco Smoking Status Current Every Day Smoker Jennifer Ann MA null, [facility] 07/30/2016 14:43:39 Do You Have An Advance Directive? Yes Information not available 07/30/2016 What Is Your Level Of Alcohol Consumption? Occasional Information not available 07/30/2016 Is Blood Transfusion Acceptable In An Emergency? Yes Information not available 07/30/2016 What Is Your Level Of Caffeine Consumption? Occasional Information not available 11/12/2020 How Much Tobacco Do You Chew? None Information not available 07/30/2016 Are You Currently Employed? Yes Information not available 07/30/2016 What Type Of Diet Are You Following? REGULAR Information not available 07/30/2016 Which Illicit Or Recreational Drugs Have You Used? None Information not available 07/30/2016 Education 10 Information no t available 07/30/2016 What Is Your Occupation? [employer] Employee Information not available 07/30/2016 Live Alone Or With Others? With Others Information not available 07/30/2016 How Many Children Do You Have? 0 Information not available 07/30/2016 What Is Your Current Pack Years? [email or web address] ars Information not available 11/12/2020 Performs Monthly Self-breast Exam? No Information no t available 07/30/2016 What Is Your Relationship Status? Single Information not available 07/30/2016 Do You Use Your Seat Belt Or Car Seat Routinely? Yes Information not available 11/12/2020 Seat Belts Used Routinely Yes Information not available 07/30/2016 Are You Sexually Active? No Information not available 07/30/2016 Do You Have Smoke And Carbon Monoxide Detectors In Your Home? Yes Information not available 11/12/2020 At What Age Did You Start Smoking Tobacco? 25 Information not available 11/12/2020 Are You Passively Exposed To Smoke? Yes Information no t available 11/12/2020 How Much Tobacco Do You Smoke? 1 PPD Information not available 07/30/2016 General Stress Level Low Information not available 07/30/2016 Do You Use Any Illicit Or Recreational Drugs? No Information not available 11/12/2020 Do You Use Sunscreen Routinely? Yes Information not available 07/30/2016 Has Tobacco Cessation Counseling Been Provided? Yes Information not available 11/12/2020 On What Date Was Tobacco Cessation Counseling Provided? 11/12/2020 Information not available 11/12/2020 How Many Years Have You Smoked Tobacco? 60 Information not available 07/30/2016 Sex: Unknown Functional Status Question Answer Note LastModified by Organization D etails LastModified Time What is your exercise level? Moderate Information not available 07/30/2016 Mental Status None recorded. Family History Relationship Description Onset Age of this Age Resolved Age Notes LastModified by Organization Details LastModified Time Father Alcohol abuse [email or web address] Not available 2015 14:42:03 Father Hypertensive disorder [email or web address] Not available 2015 14:42:56 Father Heart disease [email or web address] Not available 2015 14:43:11 Father Myocardial infarction [email or web address] Not available 07/30 14:43:25 Mother Depressive disorder [email or web address] Not available 2015 14:42:13 Mother Hypertensive disorder [email or web address] Not available 2015 14:42:56 Mother Heart disease [email or web address] Not available 2015 14:43:11 Brother Diabetes mellitus [email or web address] Not available 2015 14:42:25 Brother Hypertensive disorder [email or web address] Not available 2015 14:42:56 Medical History Condition Response Other N High Blood Pressure N Breast Cancer N Thyroid Problems N Kidney or Bladder Problems N GI Problems N Depression N Blood Clots N Lung Disease N Acne N Breast Problem N Eating Disorder N Anemia N Anesthesia Complications N Headaches/Migraines N Anxiety Disorder N Diabetes N Ovarian Cancer N Muscle, Joint, or Bone Problems N Blood Transfusions N Seizures/Epilepsy N Polyps N Infertility N Acid Reflux (GERD) N Cancer N Abuse/Domestic Violence N Asthma N Endometriosis Y High Cholesterol N Hepatitis N Liver Disease N Heart Disease N Pre-Eclampsia N Osteoporosis N Gynecological History Statement/Question Response Abnormal Pap N On BCP's at Conception? N STIs/STDs N HPV Vaccine N Most Recent Mammogram 09/12/2013 Current Control Method None Age at First Child 1 If Post Menopausal, Age at Menopause 52 Sexually Active? N Menses Monthly No Date of Last Pap Smear 09/12/2005 Sexual Problems? N LMP Obstetrics History GPAL:G 0 P 0 0 0 0 Type Value Multiple Births 0 Full Term 0 Induced 0 Spontaneous 0 Premature 0 Living 0 Ectopics 0 Total 0 Past Encounters Encounter ID Performer Location Encounter Start Date Encounter Closed Date Diagnosis/Indication Diagnosis SNOMED-CT Code Diagnosis ICD10 Code Diagnosis Note [id number] MD Johnnie Alfonso (PLANT OPERATOR/SHIFT SUPERVISOR) [address] [place] [address] [id number] 07/30/2016 13:50:05 07/30/2016 18:03:11 Pruritus of vulva 08420540 L29.2 counseled about it. Offered vulvar biopsy. She wanted to do it in 2 weeks Candidal vulvovaginitis 43432675 B37.3 [id number] MD oJhnnie Alfonso (PLANT OPERATOR/SHIFT SUPERVISOR) [address] [place] [address] [id number] 08/19/2016 10:53:55 08/20/2016 13:26:20 Pruritus of vulva 70996469 L29.2 Counseled about risk of infection, bleeding, damage to internal organs, indicated procedures . She verbalized understand ing. Vulvar biopsy done. D/W patient culture result, HSV , and PAP done last visit on vulvar area where lesions were seen. She verbalized understand ing. [id number] MD Johnnie Alfonso (PLANT OPERATOR/SHIFT SUPERVISOR) [address] [place] [address] [id number] 09/02/2016 10:49:20 09/03/2016 09:56:46 Genital lichen sclerosus 815453175 L90.0 Advised to continue applying clobetasol cream. Counseled about it. [id number] Gadiel Dorietong Blair (PLANT OPERATOR/SHIFT SUPERVISOR) [address] [place] [address] [phone] 11/12/2020 08:16:52 12/09/2020 13:20:23 Genital lichen sclerosus 618604792 L90.0 Menopausal syndrome 1235 24392 N95.9 Health Concerns Section Related Observation LastModified by Organization Detai ls LastModified Time None Recorded Concern Status LastModified by Organization Details LastModified Time None Recorded Advance Directives Directive Y: Payers Encounter Date Sequence Insurance Name Policy Number Policy Carter Covered Member ID Carter Member ID Guarantor Name 07/30/2016 1 [place] [id number] Arlet Bundy [id number] Arlet Niharika 08/19/2016 1 [place]) [id number] Arlet Leivackman [id number] Arlet Niharika 08/19/2016 2 [place] Arlet Leivackman [id number] Arlet Niharika 09/02/2016 1 [place] [id number] Arlet Bundy [id number] Arlet Niharika 09/02/2016 2 [place] Arlet Leivackman [id number] Arlet Niharika 11/12/2020 1 [place] [id number] Arlet Niharika [id number] Arlet Niharika 11/12/2020 1 [place] [facility] Arlet T Niharika [id number] Arlet Niharika Notes Date Note Type Note Provider Name and Address Organization Details Recorded Time 6 text/html Vaginal/Vulvar ProblemReported bypatient.Location:vulv a Onset/Timing:since 2 months Duration:present for >1 month; intermittent Quality:itching Severity:moderate Context:postmenopausal Alleviating Factors:OTC antifungal medication Aggravating Factors:none Associated Symptoms:no vaginal itching; no vaginal irritation; no vaginal pain; no vulvar swelling/erythema; no vulvar pain; no vulvar lesions; no pelvic pain; no dyspareunia; no dyruria; no fever; no abdominal pain;vulvar itching/irritation c/o vulvar itching since 2 months Pierre Hernandez MD Attn: Accounting,[address] [place], [address], [place] [facility] 07/30/2016 17:29:04 6 text/html Came for vulvar biopsy. Still c/o vulvar itching. Pierre Hernandez MD Attn: Accounting,[address] [facility], [place], [address], [facility] 08/19/2016 12:58:13 6 text/html came in f/u on vulvar biopsy. She say her vulvar itching improved. Denies any discharge. She say she is using clobetasol cream Pierre Hernandez MD Attn: Accounting,[address] [facility], [place], [address], [facility] 09/02/2016 11:49:25 1 text/html Vaginal/Vulvar ProblemReported bypatient.Location:vulv a Quality:itching Associated Symptoms:no vulvar pain; no vulvar lesions; no pelvic pain; no dyspareunia; no dyruria; no fever; no abdominal pain;vulvar itching/irritation;vulv ar swelling/erythema 75yo nulliparous F smoker with h/o endometriosis, hypertension and hypercholesteremia presents today for itching and white discoloration of lichen sclerosus. Last pap in 2015 and last mammogram in 2013. Gadiel johnson, [facility] 11/13/2020 07:18:12 OBGyn Episode No OBEpisode recorded.
--- OUTSIDE RECORDS SUMMARY | 2024-11-29 09:54 | XMS_ITS | Referral Summary ---
Author Organization [facility] Healthcare Address [address] [place] [address] Care Team Providers Care [employer] Advisor Name Role Phone Александр Montes MD Primary Care Provider [phone] Allergies No known active allergies Social History Tobacco Use Types Packs/Day Years Used Date Smoking Tobacco: Never Assessed Personal Safety Answer Date Recorded Getting School Help Needed Not on file 11/12 Comments Unknown Sex and Gender Information Value Date Recorded Sex Assigned at Not on file Legal Sex Female 4:07 PM CDT Gender Identity Not on file Sexual Orientation Not on file Plan of Treatment Not on file Insurance MEDICARE [facility] [place] Care Teams [employer] Advisor Relationship Specialty Start Date End Date Александр Montes MD PCP - General Internal Medicine 07/08/22
--- OUTSIDE RECORDS SUMMARY | 2024-11-29 09:54 | XMS_ITS | Clinical Summary ---
Author Organization [facility] Address [address] [place] [address] Care Team Providers Care Child Welfare Caseworker Name Role Phone Александр Montes MD Primary Care Provider [phone] Source Comments [facility],non-owned Affiliates and Associated Physician Practices is amultiple site organization consisting of ambulatory clinics and hospital sitesin [place], [place], [place] and [place]. This disclosure is being madepursuant to the Care Everywhere program and may not contain all information available regarding this patient. Last updated 18.[facility] Allergies Active Allergy Reactions Criticality Noted Date Comments Hydroxychloroquine Rash,Hepatic Injury High 07/30/20 19 Sulfamethoxazole W-Trimethoprim Rash Medium Medications * Be aware that medications may not be up to date on this document. Alwaysverify current medications with the patient. Medication Sig Dispensed Refills Start Date End Date Status albuterol HFA (PROAIR HFA) 108 (90 Base) MCG/ACT inhaler Inhale 2 puffs by mouth every 4 hours as needed Active diclofenac sodium EC (VOLTAREN) 75 MG tablet Take 1 tablet by mouth 2 times daily as needed Active olmesartan (BENICAR) 20 MG tablet Take 1 tablet by mouth once daily Active predniSONE (DELTASONE) 5 MG tablet Take 1 tablet by mouth once daily 30 tablet 1 04/04/2020 Active Active Problems Problem Noted Date Diagnosed Date Seropositive rheumatoid arthritis 09/01/2019 Social History Tobacco Use Types Packs/Day Years Used Date Smoking Tobacco: Every Day Cigarettes Smokeless Tobacco: Current Tobacco Cessation:Ready to Q uit: No; Counseling Given: Yes Alcohol Use Standard Drinks/Week Comments Yes 2 (1 standard drink = 0.6 oz pur e alcohol) every 2 weeks Sex and Gender Information Value Date Recorded Sex Assigned at Not on file Gender Identity Not on file Sexual Orientation Not on file Last Filed Vital Signs Vital Sign Reading Time Taken Comments Blood Pressure 131/66 04/04/2020 11:30 AM CDT Pulse 83 04/04/2020 11:30 AM CDT Temperature 36.6 C (97.9 F) 04/04/2020 11:30 AM CDT Respiratory Rate - - Oxygen Saturation - - Inhaled Oxygen Concentration - - Weight 66.2 kg (146 lb) 04/04/2020 11:30 AM CDT Height 157.5 cm (5' 2 ) 04/04/2020 11:30 AM CDT Body Mass Index 26.7 04/04/2020 11:30 AM CDT Plan of Treatment Health Maintenance Due Date Last Done Comments BONE DENSITY TESTING 1945 MEDICARE AWV 12 MONTHS 1945 HEPATITIS C SCREENING 03/17/1964 DTAP/TDAP/TD VACCINES (1 - Tdap) 1965 PNEUMOCOCCAL VACCINE 50+ (1 of 2 - PCV) 1965 ZOSTER VACCINE (1 of 2) 1996 Respiratory Syncytial Virus (RSV) Vaccine Pt: or over 60 yrs (1 - 1-dose 75+ series) 2021 COVID-19 VACCINE (2023-2 5 season) 2024 INFLUENZA VACCINE (#1) 2024 8, 06/12/2017, 06/20/2015 DEPRESSION SCREENING 09/12/2024 HEPATITIS B VACCINE Aged Out No longe r eligible based on patient's age to complete this topic HIB VACCINE Aged Out No longer eligi ble based on patient's age to complete this topic HPV VACCINE Aged Out No longer eligi ble based on patient's age to complete this topic MENINGOCOCCAL (Group B) VACCINE SHARED DECISION-MAKING Aged Out No longer eligible based on patient's age to complete this topic MENINGOCOCCAL GROUPS A/C/Y/W VACCINE Aged Out No longer eligible b ased on patient's age to complete this topic Care Teams Child Welfare Caseworker Relationship Specialty Start Date End Date Александр Montes MD [address] [address] PCP - General 08/11/22
--- OUTSIDE RECORDS SUMMARY | 2024-11-29 09:54 | XMS_ITS | Clinical Summary ---
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
--- OUTSIDE RECORDS SUMMARY | 2024-11-29 09:54 | XMS_ITS | Clinical Summary ---
Author Organization [facility] Address [address] [address] Care Team Providers Care Steel Die Printer Name Role Phone Unavailable Primary Care Provider Unavailabl e Allergies Active Allergy Reactions Criticality Noted Date Comments Hydroxychloroquine Hives,Other (see comments),Rash High 07/30/2019 Sulfamethoxazole-Trimethoprim Other (see comments),Rash Medium 02/16/2024 Medications albuterol HFA (Ventolin HFA) 108 (90 Base) MCG/ACT inhaler Inhale 1 puff every 6 (six) hours if needed Active Calcium Carb-Cholecalci ferol 600-10 MG-MCG tablet Take 1 tablet by mouth 1 (one) time each day 11/13/2020 Active losartan (COZAAR) 100 MG tablet Take 100 mg by mouth 1 (one) time each day Active atorvastatin (LIPITOR) 40 MG tablet Take 40 mg by mouth every other day Active levothyroxine (SYNTHROID, LEVOTHROID) 75 MCG tablet Take 75 mcg by mouth 1 (one) time each day Active acetaminophen (TYLENOL) 500 MG chewable tablet Chew 500 mg every 6 (six) hours if needed for mild pain Active Multiple Vitamin (multivitamin) capsule Take 1 capsule by mouth 1 (one) time each day Active Cholecalciferol (Vitamin D3) 25 MCG (1000 UT) capsule Take 1 tablet by mouth 1 (one) time each day Active Urea (Ure-Na) 15 g pack Take 15 g by mouth 1 (one) time each day in the morning 30 each 11 03/27/2024 Active Active Problems Problem Noted Date Diagnosed Date Stage 3b chronic kidney disease 02/21/2024 Bladder cancer 02/21/2024 Essential hypertension 02/20/2024 Hyponatremia 02/20/2024 Hyperlipidemia 02/20/2024 Vitamin D deficiency 02/20/2024 Prediabetes 02/20/2024 Chronic obstructive pulmonar y disease, not otherwise specified 02/20/2024 Lung mass 02/20/2024 Carotid artery stenosis <Unspecified side> 02/19 Hypokalemia 02/20/2024 Hypothyroidism 02/20/2024 Family History Medical History Relation Comments Diabetes Brother Hypertension Brother Heart disease Father Hypertension Father Cancer Father's Brother Diabetes Father's Brother Heart disease Mother Hypertension Mother Diabetes Paternal Grandmother Diabetes Sister Relation Status Comments Brother Father Father's Brother Mother Paternal Grandmother Sister Social History Tobacco Use Types Packs/Day Years Used Date Smoking Tobacco: Every Day Cigarettes Tobacco Cessation:Ready to Q uit: Not Asked; Counseling Given: Not Answered Alcohol Use Standard Drinks/Week Comments Not Currently 0 (1 standard drink = 0.6 oz pur e alcohol) Comments Unknown Sex and Gender Information Value Date Recorded Sex Assigned at Not on file Legal Sex Female 12:57 PM EDT Gender Identity Not on file Sexual Orientation Not on file Last Filed Vital Signs Vital Sign Reading Time Taken Comments Blood Pressure 160/80 06/26/2024 10:26 AM CDT Pulse 85 06/26/2024 10:26 AM CDT Temperature 36.1 C (97 F) 06/26/2024 10:26 AM CDT Respiratory Rate 18 06/26/2024 10:26 AM CDT Oxygen Saturation 97% 06/26/2024 10:26 AM CDT Inhaled Oxygen Concentration - - Weight 65.8 kg (145 lb 1.6 oz) 06/26/2024 10:26 AM CDT Height 160 cm (5' 3 ) 03/27/2024 11:12 AM CDT Body Mass Index 25.7 03/27/2024 11:12 AM CDT Plan of Treatment Upcoming Encounters Date Type Department Care Team (Late st Contact Info) Description 12/25/2024 11:15 AM CDT Office Visit [facility], [facility] [address] [id number] Zackary Polanco MD [address] [place] [address] Health Maintenance Due Date Last Done Comments Pneumococcal Vaccine: 65+ Ye ars (1 of 2 - PCV) 1951 Influenza Vaccine (#1) 2024 Hepatitis B Vaccine Aged Out No longe r eligible based on patient's age to complete this topic Insurance MEDICARE [employer]
--- OUTSIDE RECORDS SUMMARY | 2024-11-29 09:54 | XMS_ITS | Encounter Summary ---
Author Organization [employer] Address 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
--- OUTSIDE RECORDS SUMMARY | 2024-11-29 09:54 | XMS_ITS | Clinical Summary ---
Author Organization [facility] Healthcare Address [address] [place] [address] Care Team Providers Care Transit Bus Operator Name Role Phone Александр Montes MD Primary Care Provider [phone] Allergies No known active allergies Social History [...] Health Maintenance Due Date Last Done Comments Depression Screening 1945 Fall Risk Assessment 1945 Hepatitis C Screening 1945 Osteoporosis Screening-Bone Density Scan 1946 DTaP/Tdap/Td Vaccine (1 - Tdap) 1957 Hepatitis B Screening 1964 Zoster Vaccine (1 of 2) 1996 Well Visit 65+ 2011 Pneumococcal vaccine 65+ (2 of 2 - PCV) 06/28/2014 06/28/2013, 05/28/2013 Covid-19 Vaccine (4 - 2023-2 5 season) 2024 08/03/2021, 12/26/2020, 11/28/2020 Influenza Vaccine (#1) 2024 , 06/30/2021, 06/04/2020, Additional history exists Insurance MEDICARE [facility] [place] Care Teams Transit Bus Operator Relationship Specialty Start Date End Date Александр Montes MD PCP - General Internal Medicine 07/08/22
--- OUTSIDE RECORDS SUMMARY | 2024-11-29 09:54 | XMS_ITS | CONTINUITY OF CARE DOCUMENT ---
Author Name jovita hussein Address Unknown Organization [facility] Address [address] [place] [address] Phone [phone] Care Team Providers Care Standard Machine Stitcher Name Role Phone Reza RUEDA, Louise Unavailable Александр Montes MD Unavailable Александр Montes MD Unavailable PROBLEMS Condition Status Date Provider Notes Family History of CVA or Stroke: active ? Azeem Graham MD Syncope active Azeem Graham MD Tobacco abuse--quit active Louise Cobb MD Shortness of breath-- nl ech o 11/2022 active Louise Cobb MD HTN essential active Azeem Graham MD Hyperlipidemia active Louise Cobb MD Dizziness carotid <50% stenosis b/l active Renate Suarez Snoring completed - Louise Cobb MD Palpitations active Louise Cobb MD Bladder cancer active Louise Cobb MD Prediabetes active Francois Bansal Family History of CVA or Stroke: completed - Louise Cobb MD Family History of Hypertension: completed - Louise Cobb MD ENCOUNTERS Date Type Provider Location Encounter Diag nosis - In-person encounter Office Visit Louise Cobb MD [facility] Tobacco abuse--quitSnoringBladder cancerPalpitations - In-person encounter Office Visit Louise Cobb MD [facility] Prediabetes - In-person encounter Office Visit Louise Cobb MD [facility] Dizziness carotid <50% stenosis b/l - In-person encounter Office Visit Louise Cobb MD [facility] - In-person encounter Office Visit Louise Cobb MD [facility] - In-person encounter Office Visit Louise Cobb MD [facility] Shortness of breath-- nl echo 11/2022 - In-person encounter Office Visit Louise Cobb MD [facility] Family History of Hypertension:Family History of CVA or Stroke:Tobacco abuse--quitHyperlipidemia Dizziness carotid <50% stenosis b/l - In-person encounter Office Visit Azeem Graham MD [facility] - In-person encounter Office Visit Azeem Graham MD [facility] Family History of CVA or Stroke:SyncopeTobacco abuse--quitShortness of breath-- nl echo 11/2022HTN essential VITAL SIGNS Date Observation Value Provider Body Mass Index (Ratio) 27.10 kg/m2 Edvin Cobb MD blood pressure, diastolic 86 mm[Hg] Lacy nkLogrony blood pressure, systolic 149 mm[Hg] Stephanie kLogrony blood pressure, diastolic 86 mm[Hg] St ephashahbaz [place] blood pressure, systolic 149 mm[Hg] De phanijana [place] oxygen saturation, oximetry 98 % Ana Maria Phillips pulse rate 95 /min Ana Maria mesa weight E&M 153 [lb_av] Ana Maria mesa respiratory rate E&M 16 /min Gumaro Phillips height E&M 63 [in_i] Ana Maria mesa blood pressure, cuff size small St elke Phillips Body Mass Index (Ratio) 26.04 kg/m2 Edvin Cobb MD blood pressure, diastolic 72 mm[Hg] Sa ra Carpenter blood pressure, systolic 147 mm[Hg] Viviane a Carpenter respiratory rate E&M 18 /min Amber Si ms oxygen saturation, oximetry 97 % Amber Carpenter pulse rate 73 /min Amber Carpenter blood pressure, cuff size regular Sa ra Carpenter weight E&M 147 [lb_av] Amber Carpenter height E&M 63 [in_i] Amber Carpenter blood pressure, diastolic 65 mm[Hg] Lacy nkLogic blood pressure, systolic 136 mm[Hg] Stephanie kLog blood pressure, cuff size regular Prerna Alatorre blood pressure, diastolic 65 mm[Hg] Prerna Alatorre blood pressure, systolic 136 mm[Hg] Stephanie cartagenaparadisediane Alatorre oxygen saturation, oximetry 98 % Jennie Alatorre respiratory rate E&M 16 /min Cinthya Alatorre pulse rate 82 /min Jennie downs Body Mass Index (Ratio) 25.33 kg/m2 Gisselle velasquezdiane Landry weight in kilograms E&M 64.86 kg Gisselle Alatorre weight E&M 143 [lb_av] Jennie downs height E&M 63 [in_i] Jennie downs height in centimeters E&M 160.02 cm Prerna Alatorre Body Mass Index (Ratio) 26.21 kg/m2 Edvin Cobb MD blood pressure, resting Yes Pascual King blood pressure, diastolic 73 mm[Hg] Manuelito King blood pressure, systolic 138 mm[Hg] Nina King pulse rate 76 /min Michaela paige oxygen saturation, oximetry 98 % Michaela King respiratory rate E&M 18 /min Evangelist King weight E&M 148 [lb_av] Michaela kebeded height E&M 63 [in_i] Michaela kebeded Body Mass Index (Ratio) 26.92 kg/m2 Edvin Cobb MD blood pressure, cuff size large Ke rri Gruenenfelder blood pressure, diastolic 60 mm[Hg] Ke rri Gruenenfelder blood pressure, systolic 140 mm[Hg] Juan Manuel James oxygen saturation, oximetry 98 % Aparna Erika respiratory rate E&M 16 /min Aparna Jeffrey she[place] pulse rate 73 /min Paarna Cruz lder weight E&M 152 [lb_av] Aparna Cruz lder height E&M 63 [in_i] Aparna Cruz er Body Mass Index (Ratio) 26.21 kg/m2 Jorge L Valente blood pressure, cuff size regular Cy ntlinda Argueta blood pressure, diastolic 84 mm[Hg] Cy nthia Kendall blood pressure, systolic 144 mm[Hg] Fina jeanine Argueta oxygen saturation, oximetry 97 % Holly Argueta respiratory rate E&M 16 /min Holly Argueta pulse rate 83 /min Holly Campbel l weight E&M 148 [lb_av] Holly Campbel l height E&M 63 [in_i] Holly Campbel l Body Mass Index (Ratio) 26.21 kg/m2 Edvin Cobb MD blood pressure, resting Yes Tons bishop Bender blood pressure, diastolic 80 mm[Hg] To nsha Bender blood pressure, systolic 161 mm[Hg] Ton [facility] respiratory rate E&M 16 /min Tonsha Bender oxygen saturation, oximetry 97 % Tonsha Bender pulse rate 79 /min Tonsha Bender weight E&M 148 [lb_av] [facility] blood pressure, diastolic 78 mm[Hg] Co romeo [facility] blood pressure, systolic 165 mm[Hg] Marie ellisa [facility] pulse rate 74 /min Nathalie [facility] oxygen saturation, oximetry 99 % Nathalie Petersen Body Mass Index (Ratio) 24.97 kg/m2 Amparo henson [facility] respiratory rate E&M 16 /min Nathalie Petersen weight E&M 141 [lb_av] Nathalie Petersen Body Mass Index (Ratio) 24.27 kg/m2 Anea johny Brown blood pressure, diastolic, left arm 80 mm [Hg] Aneatris Brown blood pressure, systolic, left arm 160 mm [Hg] Aneatris Brown blood pressure, diastolic, right arm 82 m m[Hg] Aneatris Brown blood pressure, systolic, right arm 178 m m[Hg] Aneatris Brown blood pressure, diastolic 82 mm[Hg] An eatris Brown blood pressure, systolic 178 mm[Hg] Ane atris Brown pulse rate 69 /min Aneatris Brown oxygen saturation, oximetry 98 % Aneatris Brown respiratory rate E&M 17 /min Aneatri s Brown weight E&M 137 [lb_av] Aneatris Brown height E&M 63 [in_i] Aliciaatris Michael ALLERGIES Allergy Name Onset Date Reaction Criticality Status STATINS muscle pain muscle pain High Critica lity active HYDROXYCHLOROQUINE High Criticality active SULFA High Criticality active HISTORY OF MEDICATION USE Medication Status Instructions Dates Provider Indications Com ments atorvastatin 40 mg tablet active Take 1 tablet by mouth once a day 03/29 Aparna James atorvastatin 40 mg tablet completed - 03/29 Aparna James Stiolto Respimat 2.5-2.5 mcg/actuation mist active Je Cardozazai atorvastatin 40 mg tablet completed 1 tablet by mouth once a day 10/13 - 10/07 Renate Suarez losartan 50 mg tablet active Take 1/2 tablet by mouth twice a day 10/13 Je Cardozazai rosuvastatin 20 mg tablet completed TAKE ONE TABLET BY MOUTH EVERY DAY 06/10 - 10/13 Tia Evelyn ezetimibe 10 mg tablet active TAKE ONE TABLET BY MOUTH EVERY DAY 06/10 Madyson Teranr Radha Allergy 180 mg tablet completed as needed 11/10 - 11/16 Je Cardozazai cholecalciferol (vitamin D3) 125 mcg (5,000 unit) capsule completed 1 tablet by mouth once a day 11/10 - 11/16 Je Cardozazai MULTIVITAMINS ORAL CAPSULE completed 1 tablet once a day 11/10 - 11/16 Je Cardozazai COQ10 CAPSULE completed once a day 11/10 - 11/16 Je Cardozazai Zetia 10 mg tablet completed ONE TAB. DAILY 05/12 - 06/10 Thuy Valente rosuvastatin 20 mg tablet completed one tab daily. 05/12 - 06/10 Thuy Valente albuterol sulfate 90 mcg/actuation HFA aerosol inhaler active 2 puff every six hours as needed 04/14 Thuy Valente HYDROXYZINE HCL 25 MG ORAL TABLET completed 04/14 - 06/09 Aparna James diclofenac sodium 75 mg tablet,delayed release (/BURTON) completed 1 tablet twice a day as needed 04/14 - 11/16 Je Crocker olmesartan 20 mg tablet completed 1 tablet once a day 04/14 - 10/13 Thuy Valente AMLODIPINE BESYLATE 5 MG ORAL TABLET completed ONE TABLET DAILY 11/15 - 04/14 Thuy Valente HYDROCHLOROTHIAZIDE 12.5 MG ORAL TABLET completed ONE TABLET DAILY 11/15 - 04/14 Thuy Valente LOSARTAN POTASSIUM 50 MG ORAL TABLET completed 50MG TWICE DAILY 11/15 - 04/14 Thuy Valente SOCIAL HISTORY Date Observation Value Provider social history E&M Patient is a former smoker. Q uit 1 month ago. Smoking History: Bryan velazquez is a former smoker. Je Crocker Exercise counseling yes Kelly bates [place] smoking, year quit 2013 Ana Maria Phillips smoking, date started 1952 Ezequiel hartmann [place] smoking history, tot al pack/year 62 Ana Maria [place] smoking history, tot al pack/day 1PK Ana Maria [place] cigarette use yes [facility] Former smoker Ana Maria garzahilario social history reviewed E&M revi ewed - no changes required Je Crocker smoking/tobacco cess ation, patient education and counseling yes Francois Bansal number of grandchildren Louise Bansal social history reviewed E&M revi ewed - no changes required Louise Cobb MD social history reviewed E&M revi ewed - no changes required Renate Suarez Exercise counseling yes Erlin Alatorre social history E&M Patient is a former smoker. Q uit 1 month ago. Smoking History: Bryan velazquez currently smokes every day. P atient has been counseled to quit. Renate Suarez social history reviewed E&M revi ewed - no changes required Renate Popgarett smoking/tobacco cess ation, patient education and counseling yes Michaela King smoking, year quit 2013 Liset King smoking, date started 1952 Tayler King smoking history, tot al pack/year 62 Michaela King smoking history, tot al pack/day 1PK Michaela King cigarette use yes Michaela franklin smoking status Current every day smoker S henok King social history E&M Patient is a former smoker. Q uit 1 month ago. Smoking History: P atient currently smokes every day. P atient has been counseled to quit. Louise Cobb MD social history reviewed E&M revi ewed - no changes required Louise Cobb MD smoking/tobacco cess ation, patient education and counseling yes Aparna Erika smoking, year quit 2013 Aparna Mallory pham smoking, date started 1952 Aparna Erika smoking history, tot al pack/year 62 Aparna Erika smoking history, tot al pack/day 1PK Aparna Erika cigarette use yes Aparnatania choi smoking status Current every day smoker K fartun James social history E&M Patient is a former smoker. Q uit 1 month ago. Smoking History: P atient currently smokes every day. P atient has been counseled to quit. Thuy Valente social history reviewed E&M revi ewed - no changes required Thuy Valente smoking/tobacco cess ation, patient education and counseling yes Holly Argueta smoking, year quit 2013 Holly zambrano smoking, date started 1952 Jayden Argueta smoking history, tot al pack/year 62 Holly Argueta smoking history, tot al pack/day 1PK Holly Argueta cigarette use yes Holly narayan smoking status Current every day smoker Jose Argueta social history E&M Patient is a former smoker. Q uit 1 month ago. Smoking History: P marcus currently smokes every day. Thuy Ambrosio social history reviewed E&M revi ewed - no changes required Thuy Ambrosio alcohol use no Thuy Ambrosio smoking status Current every day smoker T charo Ambrosio smoking, year quit 2013 Kraiglainey Marley bates smoking history, tot al pack/year 62 Thuy Ambrosio smoking, date started 1952 Thuy Ambrosio smoking history, tot al pack/day 1PK Thuy Ambrosio cigarette use yes Jay Bender smoking history, tot al pack/year 62 Batsheva Jackson quit smoking, stage quit Azeem rojas MD social history reviewed E&M revi ewed - no changes required Azeem Graham MD smoking/tobacco cess ation, patient education and counseling yes Nathalie Petersen smoking, year quit 2013 Nathalie Lai smoking, date started 1952 Toribio Petersen smoking history, tot al pack/day 1PK Nathalie Petersen cigarette use yes Nathalie Petersen smoking status Former smoker Nathalie azul smoking/tobacco cess ation, patient education and counseling yes Azeem Graham MD quit smoking, stage quit Azeem rojas MD social history E&M Patient is a former smoker. Smoking History: P atcordell is a former smoker. Q uit 1 month ago. Azeem Graham MD social history reviewed E&M revi ewed - no changes required Azeem Graham MD smoking, year quit 2013 Janett Rodriguez smoking, date started 1952 Flip Rodriguez smoking history, tot al pack/day 1PK Janett Rodriguez cigarette use yes Janett Michael smoking status Former smoker Azeem Graham MD FAMILY HISTORY Family Member Condition Full Brother Family History of Di abetes: Father Family History of CV A or Stroke: Mother Family History of Hy pertension: Mother Family History of CV A or Stroke: INSURANCE PROVIDERS Payer name Policy type / Coverage type [place] [employer] [place] Medicare [id number] ADVANCE DIRECTIVES Name Date DISCUSSED - NO DECISION MADE TREATMENT PLAN Date Name Performer [id number],S, Je Ahmedza i [id number],S, Je Ahmedza i [id number],S, Je Ahmedza i [id number],S, Je Ahmedza i [id number],S, Je Ahmedza i [id number],B, Je Ahmedza i [id number],B, Je Ahmedza i [id number],S, Je Ahmedza i [id number],S, Je Ahmedza i [id number],S, Je Ahmedza i [id number],S, Je Ahmedza i [id number],S, Je Ahmedza i [id number],Francois Fuentes [id number],Francois Deutsch [id number],S, Francois Nacht [id number],S, Francois Nacht [id number],W, Francois Nacht [id number],S, Francois Nacht [id number],B, Renate Antoine obsmeyer [id number],S, Renate Antoine obsmeyer [id number],S, Renate Antoine obsmeyer [id number],S, Renate Antoine obsmeyer [id number],W, Renate Antoine obsmeyer [id number],S, Renate Antoine obsmeyer Telehealth Je Ahmedzai Telehealth Je Ahmedzai Telehealth Je Ahmedzai Telehealth Je Ahmedzai Telehealth Je Ahmedzai Cardiology Je Ahmedzai Cardiology Je Ahmedzai Cardiology Je Ahmedzai Cardiology Je Ahmedzai Cardiology Je Ahmedzai Cardiology Je Ahmedzai Cardiology Je Ahmedzai Cardiology Francois Nacht Cardiology Francois Nacht Cardiology Francois Nacht Cardiology Francois Nacht Cardiology Francois Nacht Cardiology Francois Nacht Cardiology Renate [place] eyer Cardiology Renate [place] eyer Cardiology Renate [place] eyer Cardiology Renate [place] Cardiology Renate [place] Cardiology Renate Preciado eyer Cardiology Follow up Louise still MD Cardiology Follow up Louise still MD Cardiology Follow up Louies still MD Cardiology Follow up Louise still MD Cardiology follow up Louise still MD Cardiology follow up Louise still MD Cardiology follow up Louise still MD Cardiology follow up Louise still MD Cardiology follow up Louise still MD Cardiology - cpoe, billing, ghislaine er Louise Cobb MD Cardiology - cpoe, billing, ghislaine er Louise Cobb MD Cardiology - cpoe, billing, ghislaine er Louise Cobb MD Cardiology - cpoe, billing, ghislaine er Louise Cobb MD Cardiology - cpoe, billing, ghislaine er Louise Cobb MD follow up Azeem Graham MD follow up:BP 165/78 Her updated medication list for this problem includes: Losartan Potassium 50 Mg Oral Tabs (Losartan potassium) ..... 1 tab daily Azeem Graham MD HOS FOLLOW UP Azeem Graham MD Date Name Complete Echo Holter Monitor 48 hr Sleep Study Home LIPID PANEL Holter Monitor 48 hr Carotid Duplex Bilat eral Stress Regadenoson Complete Echo CBC (H/H, RBC, INDIC ES, WBC, PLT) HEMOGLOBIN A1c TSH, free T4, total T3 LIPID PANEL COMPREHENSIVE METABO LIC PANEL, W/EGFR DLCO Order - [id number] FRC Order - [id number] FVC Order - [id number] Full PFT HISTORY OF PROCEDURES Procedure Date Procedure Name Provider Procedure Notes S tatus EKG Louise Cobb MD completed EKG Louise Cobb MD completed EKG Louise Cobb MD completed Regadenoson, 4 units Louise Cobb MD completed Cardiolite, 2 units Louise Cobb MD completed SPECT Images Louise Cobb MD complet ed Stress EKG Louise Cobb MD completed Schedule Followup Louise Cobb MD with TS s/p t esting completed EKG Louise Cobb MD completed Ambulatory BP Azeem Graham MD comple ally BLOOD COUNT HEMOGLOBIN Azeem Graham MD completed
== END 2024-11-29 09:29 | disposition home or self-care (01) ==
PROVIDERS: PCP Internal Medicine; Visit Provider Internal Medicine Pulmonary Disease
DX: Z12.2 Encounter for screening for malignant neoplasm of respiratory organs (principal); Z87.891 Personal history of nicotine dependence
CPT/HCPCS: 71271